=== PATIENT | male | born 1995 | race Caucasian/White ===

== ENCOUNTER 2018-03-07 13:35 | Emergency (ER) | payer BC ==
--- OUTSIDE RECORDS SUMMARY | 2018-03-07 13:39 | XMS REPORT | Clinical Summary ---
:1995 Author Organization [facility] Address [address] [place] [id number] Care Team Providers Name Role Phone Lambert London MD Primary Care Provider Allergies Active Allergy Reactions Severity Noted Date Comments Ciprofloxacin 02/29/2016 Current Medications Prescription Sig. Disp. Refills Start Date End Date Status ergocalciferol Take 50,000 Units Active (ERGOCALCIFEROL) 50,000 by mouth once a unit capsule week. magnesium chloride 64 mg Take 64 mg by Active tablet,delayed release mouth 3 (three) (DR/EC) DR tablet times a day. 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 Nutritional disorder 11/19/2012 Crohn's disease 04/24/2011 Duodenitis 04/23/2011 Gastric catarrh 04/23/2011 Ileitis 04/23/2011 Abdominal pain 04/22/2011 Diarrhea 04/22/2011 Social History Tobacco Use Types Packs/Day Years Used Date Never Smoker Alcohol Use Drinks/Week oz/Week Comments No Sex Assigned at Date Recorded Not on file Last Filed Vital Signs Not on file Plan of Treatment Health Maintenance Due Date Last Done Comments INFLUENZA VACCINE 04/23/2018 Results Not on fileafter 03/06/2017 Insurance Payer Benefit Plan / Group Subscriber ID Type Phone Address BCBS BCBS CHOICE PPO/FEDERAL EMPL PPO xxxxxxxxxxxxxxx PPO Home: Jacqueline MULLINS O [phone] [id number]
[2018-03-07] MEDS ORDERED: ONDANSETRON 4 MG/2 ML VIAL ONE (18:56)
[2018-03-07] MEDS ORDERED: NA CHLORIDE 0.9% 1,000 ML ONE (18:56)
[2018-03-07 19:00] LABS: Absolute Lymphocytes (CBC) 1.8 K/uL (0.7-4.9); Absolute Monocytes 0.8 K/uL (0.1-1.3); Absolute Neutrophil 8.6 K/uL (1.8-8.0); Basophils % 0.5 % (0-1.3); Eosinophils % 1.2 % (0-4.4); Hematocrit 47.9 % (39.6-49.0); Lymphocytes % 16.1 % (15.3-44.8); MCH 28.8 pg (27.0-35.0); MCV 85.8 fL (80-100); MPV 8.8 fL (7.6-11.3); Monocytes % 7.2 % (3.3-12.3); RBC Red Blood Cell Count 5.58 M/uL (4.33-5.43)
[2018-03-07 19:10] LABS: Bicarbonate 27 mEq/L (21-31); Glucose Level 101 mg/dL (65-120); Lipase 27 U/L (22-51); Potassium 3.7 mEq/L (3.6-5.0); Sodium Level 137 mEq/L (135-145)
[2018-03-07 19:16] LABS: ALT/SGPT 15 IU/L (10-60); AST/SGOT 21 IU/L (10-42); Albumin 4.7 g/dL (3.2-5.5); Alkaline Phosphatase 72 IU/L (42-121); BUN Blood Urea Nitrogen 15 mg/dL (6-20); Bilirubin Direct < 0.1 mg/dL (0-0.2); Bilirubin Total 0.5 mg/dL (0.3-1.2); Protein, Total 8.8 g/dL (6.0-8.3)
--- NOTE | 2018-03-07 20:02 | RAD REPORT ---
EXAM DESCRIPTION: CTAbdomen Pelvis W Contrast - 03/07/2018 7:39 pm CLINICAL HISTORY: Abdominal pain. ABD PAIN COMPARISON: CT ABD PELVIS W CONTRAST dated 04/19/2011; CT ABD PELVIS W CONTRAST dated 07/14/2011; Sma ll Bowel Series dated 03/30/2016 TECHNIQUE: Biphasic CT imaging of the abdomen and pelvis was performed with 100 ml non-ionic IV cont rast. All CT scans are performed using dose optimization technique as appropriate and may include automated exposure control or mA/KV adjustment according to patient size. FINDINGS: The lung bases are clear. The liver, spleen, pancreas, adrenal glands and kidneys are within normal limits. No bowel obstruction, free air, free fluid or abscess. Significant fecal retention is seen. Marked in flammatory wall thickening of the terminal ileum is seen. Several surrounding reactive lymph nodes ar e present. The appendix is not identified as a discrete structure, however, no secondary findings of appendicitis are identified. No suspicious bony findings. IMPRESSION: Moderate to marked inflammatory changes involving the terminal ileum compatible with his tory of Crohn's disease. Significant constipation.
[2018-03-07 21:49] LABS: Urine Blood NEGATIVE (NEG); Urine Glucose NEGATIVE (NEG); Urine Protein NEGATIVE (NEG); Urine Specific Gravity 1.015 (1.005-1.030); Urine pH 8.5 (5.0-7.0)
--- NOTE | 2018-03-07 22:13 | ER ---
Nurse's Notes [facility] Name: Garry Franz Age: 22 yrs Sex: Male : 1995 Arrival Date: 03/07/2018 Time: 13:44 Bed 17 Private MD: Diagnosis: Crohn's disease [regional enteritis];Constipation Presentation: 03/07 14:08 Presenting complaint: Patient states: nausea/vomiting that began 5 days ago. pt states aa5 "I feel dehydrated". pt states "I have chron's so I always have diarrhea". Transition of care: patient was not received from another setting of care. Onset of symptoms was March 02, 2018. Risk Assessment: Do you want to hurt yourself or someone else? Patient reports no desire to harm self or others. Initial Sepsis Screen: Does the patient meet any 2 criteria? No. Patient's initial sepsis screen is negative. Does the patient have a suspected source of infection? No. Patient's initial sepsis screen is negative. Care prior to arrival: None. 14:08 Method Of Arrival: Ambulatory aa5 14:08 Acuity: KYA 3 aa5 Triage Assessment: 18:50 General: Appears in no apparent distress. comfortable, Behavior is calm, cooperative. em Pain: Complains of pain in "everywhere". GI: Reports "hx of chron's". Historical: - Allergies: 14:09 No Known Allergies; aa5 - PMHx: 14:09 chron's; aa5 - PSHx: 14:09 Hernia repair; aa5 - Immunization history:: Adult Immunizations up to date. - Social history:: Smoking status: Patient/guardian denies using tobacco. - Ebola Screening: : No symptoms or risks identified at this time. Screenin:50 Abuse screen: Denies threats or abuse. Nutritional screening: reports feeling em "malnourished" . Tuberculosis screening: No symptoms or risk factors identified. Fall Risk None identified. Assessment: 18:50 General: Appears in no apparent distress. comfortable, Behavior is calm, cooperative. em Pain: Denies pain. Neuro: Level of Consciousness is awake, alert, obeys commands, Oriented to person, place, time, situation. Cardiovascular: Capillary refill < 3 seconds Patient's skin is warm and dry. Cardiovascular: Reports palpitations, Denies chest pain, diaphoresis, nausea, vomiting. Respiratory: Airway is patent Respiratory effort is even, unlabored, Respiratory pattern is regular, symmetrical. GI: Abdomen is flat, Reports intolerance of fluids, intolerance of food. : Urine is clear. EENT: Oral mucosa is moist. Throat is clear is pink. Derm: Skin is intact, Skin is pink, warm \\T\\ dry. Musculoskeletal: Range of motion: intact in all extremities. 19:00 Reassessment: Patient appears in no apparent distress at this time. I agree with the ss above assessment by Blaine Lou LVN. 19:32 General: reviewed previous assessment and there have been no changes. IV fluids tl2 infusing. Pt is out to CT. 20:29 Reassessment: Patient appears in no apparent distress at this time. Patient and/or tl2 family updated on plan of care and expected duration. Pain level reassessed. Patient is alert, oriented x 3, equal unlabored respirations, skin warm/dry/pink. Patient states feeling better. 21:45 Reassessment: Patient appears in no apparent distress at this time. Patient and/or tl2 family updated on plan of care and expected duration. Pain level reassessed. Patient is alert, oriented x 3, equal unlabored respirations, skin warm/dry/pink. Awaiting TUBE CUTTER OPERATOR to come speak with pt. 22:33 Reassessment: Patient appears in no apparent distress at this time. Patient and/or tl2 family updated on plan of care and expected duration. Pain level reassessed. Patient is alert, oriented x 3, equal unlabored respirations, skin warm/dry/pink. Pt verbalized understanding of discharge instructions, need for follow up and prescription usage. Vital Signs: 14:09 BP 147 / 95; Pulse 98; Resp 18 S; Temp 99.2(TE); Pulse Ox 98% on R/A; Weight 56.7 kg aa5 (R); Height 5 ft. 9 in. (175.26 cm) (R); Pain 0/10; 19:26 BP 141 / 87; Pulse 93; Resp 18; Pulse Ox 97% on R/A; mt 20:29 BP 136 / 80; Pulse 88; Resp 18; Pulse Ox 97% on R/A; tl2 21:45 BP 130 / 93; Pulse 82; Resp 18; Pulse Ox 98% on R/A; tl2 14:09 Body Mass Index 18.46 (56.70 kg, 175.26 cm) aa5 ED Course: 13:44 Patient arrived in ED. sb2 14:09 Triage completed. aa5 14:09 Arm band placed on. aa5 18:26 Lyle Reilly NP is PHCP. pm1 18:26 Axel Kay MD is Attending Physician. pm1 18:50 Blaine Lou LVN is Primary Nurse. em 18:50 Patient has correct armband on for positive identification. Bed in low position. Call em light in reach. Adult w/ patient. 19:15 Inserted 20 g in R forearm placed during previous shift IV is patent, is intact, with tl2 fluids infusing freely. 19:[address] via wheelchair. mw3 19:39 CT Abd/Pelvis - W/Contrast: IV contrast only In Process Unspecified. EDMS 22:12 Carmen Olson MD is Referral Physician. pm1 22:33 No provider procedures requiring assistance completed. tl2 22:35 IV discontinued, intact, bleeding controlled, No redness/swelling at site. Pressure tl2 dressing applied. Administered Medications: 19:02 Drug: Zofran 4 mg Route: IVP; Site: right forearm; ss 20:00 Follow up: Response: No adverse reaction; Nausea is decreased tl2 19:03 Drug: NS 0.9% 1000 ml Route: IV; Rate: 1000 ml; Site: right forearm; em 22:36 Follow up: IV Status: Completed infusion; IV Intake: 1000ml tl2 Intake: 22:36 IV: 1000ml; Total: 1000ml. tl2 Outcome: 22:12 Discharge ordered by . pm1 22:35 Discharged to home ambulatory, with family. tl2 22:35 Condition: stable 22:35 Discharge instructions given to patient, Instructed on discharge instructions, follow up and referral plans. medication usage, Demonstrated understanding of instructions, follow-up care, medications, Prescriptions given X 1. 22:36 Patient left the ED. tl2 Signatures: Dispatcher [employer] EDMA Blaine Lou LVN GUN PERFORATOR em Pratibha Cast RN RN aa5 Mayi Plascencia RN RN Llye Reilly NP TUBE CUTTER OPERATOR pm1 Rosalinda Lemus RN RN tl2 Claribel Marino mt, Sheri sb2 Alba Mondragon mw3
--- NOTE | 2018-03-07 22:13 | EDPHYS ---
Physician Documentation [facility] Name: Garry Franz Age: 22 yrs Sex: Male : 1995 Arrival Date: 03/07/2018 Time: 13:44 Bed 17 Private MD: ED Physician Axel Kay HPI: 03/07 19:00 This 22 yrs old Male presents to ER via Ambulatory with complaints of pm1 Nausea/Vomiting, Dehydration. 19:00 The patient presents to the emergency department with nausea, diarrhea, abdominal pain, pm1 of the left upper quadrant, described as vague,\E\. 19:00 Onset: The symptoms/episode began/occurred 5 day(s) ago. Possible causes: Crohn's pm1 disease. Patient with diagnosis of disease since the age of 14. Patient no longer taking medications for disease and is treating holistically. The symptoms are aggravated by nothing. The symptoms are alleviated by nothing. Associated signs and symptoms: Pertinent positives: abdominal pain, diarrhea, Pertinent negatives: constipation, dysuria, fever. The patient has not recently seen a physician, used to see [facility] for Crohns' disease. Historical: - Allergies: 14:09 No Known Allergies; aa5 - PMHx: 14:09 chron's; aa5 - PSHx: 14:09 Hernia repair; aa5 - Immunization history:: Adult Immunizations up to date. - Social history:: Smoking status: Patient/guardian denies using tobacco. - Ebola Screening: : No symptoms or risks identified at this time. ROS: 19:00 Constitutional: Negative for fever, chills, and weight loss, Eyes: Negative for injury, pm1 pain, redness, and discharge, ENT: Negative for injury, pain, and discharge, Neck: Negative for injury, pain, and swelling, Cardiovascular: Negative for chest pain, palpitations, and edema, Respiratory: Negative for shortness of breath, cough, wheezing, and pleuritic chest pain. 19:00 Back: Negative for injury and pain, : Negative for injury, bleeding, discharge, and swelling, MS/Extremity: Negative for injury and deformity, Skin: Negative for injury, rash, and discoloration, Neuro: Negative for headache, weakness, numbness, tingling, and seizure. 19:00 Abdomen/GI: Positive for abdominal pain, nausea and vomiting, diarrhea. Exam: 19:00 Constitutional: This is a well developed, well nourished patient who is awake, alert, pm1 and in no acute distress. Head/Face: Normocephalic, atraumatic. Eyes: Pupils equal round and reactive to light, extra-ocular motions intact. Lids and lashes normal. Conjunctiva and sclera are non-icteric and not injected. Cornea within normal limits. Periorbital areas with no swelling, redness, or edema. ENT: Nares patent. No nasal discharge, no septal abnormalities noted. Tympanic membranes are normal and external auditory canals are clear. Oropharynx with no redness, swelling, or masses, exudates, or evidence of obstruction, uvula midline. Mucous membranes moist. Neck: Trachea midline, no thyromegaly or masses palpated, and no cervical lymphadenopathy. Supple, full range of motion without nuchal rigidity, or vertebral point tenderness. No Meningismus. Chest/axilla: Normal chest wall appearance and motion. Nontender with no deformity. No lesions are appreciated. Cardiovascular: Regular rate and rhythm with a normal S1 and S2. No gallops, murmurs, or rubs. Normal PMI, no JVD. No pulse deficits. Respiratory: Lungs have equal breath sounds bilaterally, clear to auscultation and percussion. No rales, rhonchi or wheezes noted. No increased work of breathing, no retractions or nasal flaring. Abdomen/GI: Soft, non-tender, with normal bowel sounds. No distension or tympany. No guarding or rebound. No evidence of tenderness throughout. Back: No spinal tenderness. No costovertebral tenderness. Full range of motion. Skin: Warm, dry with normal turgor. Normal color with no rashes, no lesions, and no evidence of cellulitis. MS/ Extremity: Pulses equal, no cyanosis. Neurovascular intact. Full, normal range of motion. 19:00 Neuro: Orientation: is normal, Motor: is normal, moves all fours, Gait: is steady, at a normal pace, without difficulty. Vital Signs: 14:09 BP 147 / 95; Pulse 98; Resp 18 S; Temp 99.2(TE); Pulse Ox 98% on R/A; Weight 56.7 kg aa5 (R); Height 5 ft. 9 in. (175.26 cm) (R); Pain 0/10; 19:26 BP 141 / 87; Pulse 93; Resp 18; Pulse Ox 97% on R/A; mt 20:29 BP 136 / 80; Pulse 88; Resp 18; Pulse Ox 97% on R/A; tl2 21:45 BP 130 / 93; Pulse 82; Resp 18; Pulse Ox 98% on R/A; tl2 14:09 Body Mass Index 18.46 (56.70 kg, 175.26 cm) aa5 MDM: 18:33 Patient medically screened. pm1 22:11 Data reviewed: vital signs. Data interpreted: Pulse oximetry: on room air is 98 %. pm1 Interpretation: normal. Counseling: I had a detailed discussion with the patient and/or guardian regarding: the historical points, exam findings, and any diagnostic results supporting the discharge/admit diagnosis, lab results, radiology results, the need for outpatient follow up, to return to the emergency department if symptoms worsen or persist or if there are any questions or concerns that arise at home. 03/07 18:34 Order name: Basic Metabolic Panel pm1 03/07 18:34 Order name: CBC with Diff; Complete Time: 20:20 pm1 03/07 18:34 Order name: Creatinine for Radiology; Complete Time: 20:20 pm1 03/07 18:34 Order name: Hepatic Function pm1 03/07 18:34 Order name: Lipase pm1 03/07 18:34 Order name: Basic Metabolic Panel; Complete Time: 20:20 EDMS 03/07 18:34 Order name: Liver (Hepatic) Function; Complete Time: 20:20 EDMS 03/07 18:34 Order name: Lipase; Complete Time: 20:20 EDMS 03/07 18:48 Order name: Troponin (emerg Dept Use Only) pm1 03/07 18:48 Order name: CT Abd/Pelvis - W/Contrast: IV contrast only; Complete Time: 20:20 pm1 03/07 18:48 Order name: Flu; Complete Time: 20:20 pm1 03/07 18:48 Order name: Troponin (Emerg Dept Use Only); Complete Time: 20:20 EDMS 03/07 20:06 Order name: Urine Dipstick--Ancillary (enter results) vt 03/07 20:07 Order name: Urine Dipstick-Ancillary; Complete Time: 21:52 EDMS 03/07 18:34 Order name: IV Saline Lock; Complete Time: 19:06 pm1 03/07 18:34 Order name: Labs collected and sent; Complete Time: 19:06 pm1 03/07 18:34 Order name: Urine Dipstick-Ancillary (obtain specimen); Complete Time: 19:06 pm1 03/07 18:48 Order name: EKG; Complete Time: 18:48 pm1 03/07 18:48 Order name: EKG - Nurse/Tech; Complete Time: 19:11 pm1 Administered Medications: 19:02 Drug: Zofran 4 mg Route: IVP; Site: right forearm; 20:00 Follow up: Response: No adverse reaction; Nausea is decreased tl2 19:03 Drug: NS 0.9% 1000 ml Route: IV; Rate: 1000 ml; Site: right forearm; 22:36 Follow up: IV Status: Completed infusion; IV Intake: 1000ml tl2 Disposition: 03/07/18 22:12 Discharged to Home. Impression: Crohn's disease [regional enteritis], Constipation. - Condition is Stable. - Discharge Instructions: Constipation, Adult, Crohn Disease. - Prescriptions for Prednisone 20 mg Oral Tablet - take 1 tablet by ORAL route every 12 hours for 5 days; 10 tablet. - Medication Reconciliation Form, Thank You Letter, Work release form form. - Follow up: Emergency Department; When: As needed; Reason: Worsening of condition. Follow up: Carmen Olson MD; When: 2 - 3 days; Reason: Recheck today's complaints, Continuance of care, Re-evaluation by your physician. - Problem is new. - Symptoms have improved. Addendum: 03/11/2018 07:09 Co-signature as Attending Physician, Axel Kay MD I agree with the assessment and k dr plan of care. Signatures: Dispatcher [employer] [facility] Axel Kay MD MD [facility] Blaine Lou, DIPLOMATIC OFFICER DIPLOMATIC OFFICER em Pratibha Cast, RN RN aa5 Mayi Plascencia RN RN ss Lyle Reilly, JYOIT PRODUCT CONTROLLER pm1 Rosalinda Lemus RN RN tl2 Corrections: (The following items were deleted from the chart) 03/07 22:36 22:12 03/07/2018 22:12 Discharged to Home. Impression: Crohn's disease [regional tl2 enteritis]; Constipation. Condition is Stable. Forms are Medication Reconciliation Form, Thank You Letter, Antibiotic Education, Prescription Opioid Use. Follow up: Emergency Department; When: As needed; Reason: Worsening of condition. Follow up: Carmen Olson; When: 2 - 3 days; Reason: Recheck today's complaints, Continuance of care, Re-evaluation by your physician. Problem is new. Symptoms have improved. pm1
--- NOTE | 2018-03-08 13:44 | EKG ---
Test Date: 2018-03-07 Test Time: 19:10:40 Locker Room Supervisor: JADEN MEASUREMENT RESULTS: Intervals: Rate: 72 ME: 120 QRSD: 88 QT: 360 QTc: 394 [place]: P: 75 ME: 120 QRS: 91 T: 80 INTERPRETIVE STATEMENTS: Normal sinus rhythm with sinus arrhythmia Right atrial enlargement Rightward axis Borderline ECG Compared to ECG 07/13/2015 09:48:15 No significant changes Electronically Signed On 03-08-18 13:43:32 CDT by José Lopez
== END 2018-03-07 22:36 | disposition home or self-care (01) ==
LOC: ER 13:35
DX: K50.90 Crohn's disease, unspecified, without complications (principal)
CPT/HCPCS: 36415; 74177; 80048; 80076; 81003; 83690; 84484; 85025; 87804; 93005; 96361; 96374; 99284; J2405; J7030; Q9967

== ENCOUNTER 2021-05-10 13:41 | Emergency (ER) | payer BC, SELFPAY ==
--- NOTE | 2021-05-10 15:32 | RAD REPORT ---
EXAM DESCRIPTION: RAD - Chest Single View - 05/10/2021 2:35 pm CLINICAL HISTORY: CHEST PAIN COMPARISON: June 2015 TECHNIQUE: AP portable chest image was obtained 05/10/2021 2:35 pm . FINDINGS: Lungs are clear. Heart and vasculature are normal. No measurable pleural effusion and no p neumothorax. No acute bony abnormality seen. No acute aortic findings suspected. IMPRESSION: No acute cardiopulmonary process. No significant change from comparison study.
[2021-05-10 16:13] LABS: Absolute Lymphocytes (CBC) 1.6 K/uL (0.7-4.9); Basophils % 0.4 % (0-1.3); Lymphocytes % 21.6 % (15.3-44.8); MPV 8.4 fL (7.6-11.3); RBC Red Blood Cell Count 5.73 M/uL (4.33-5.43)
--- NOTE | 2021-05-10 16:23 | EKG ---
Test Date: 2021-05-10 Test Time: 14:09:15 Experimental Technician: ANNI MEASUREMENT RESULTS: Intervals: Rate: 123 NE: 116 QRSD: 82 QT: 308 QTc: 440 [place]: P: 77 NE: 116 QRS: 96 T: 35 INTERPRETIVE STATEMENTS: Sinus tachycardia Biatrial enlargement Rightward axis Abnormal ECG Compared to ECG 03/07/2018 19:10:40 Sinus rhythm no longer present Sinus arrhythmia no longer present Electronically Signed On 05-10-21 16:22:40 CDT by Zechariah Epstein
[2021-05-10 16:25] LABS: Protime INR 1.05
[2021-05-10 16:32] LABS: ALT/SGPT 20 U/L (12-78); AST/SGOT 11 U/L (15-37); Albumin 4.4 g/dL (3.4-5.0); Alkaline Phosphatase 80 U/L (45-117); BUN Blood Urea Nitrogen 9 mg/dL (7-18); Bicarbonate 29 mmol/L (21-32); Bilirubin Direct 0.1 mg/dL (0-0.2); Bilirubin Total 0.3 mg/dL (0.2-1.0); Glucose Level 103 mg/dL (74-106); Magnesium 2.2 mg/dL (1.8-2.4); NT PRO-BNP 11 pg/mL (<125); Protein, Total 8.4 g/dL (6.4-8.2); Sodium Level 139 mmol/L (136-145); Troponin (Emerg Dept Use Only) < 0.02 ng/mL (0.0-0.045)
--- NOTE | 2021-05-10 18:34 | EDPHYS ---
Physician Documentation [facility] Name: Garry Franz Age: 25 yrs Sex: Male : 1995 Arrival Date: 05/10/2021 Time: 13:45 Bed 20 Private MD: ED Physician Daniel Levin HPI: 05/10 23:51 This 25 yrs old Male presents to ER via Ambulatory with complaints of Chest kb Pain, Arm Pain, Weakness. 23:51 The patient presents with a history of heart racing. Context: The symptoms occur. kb Onset: The symptoms/episode began/occurred last week. Duration: The patient or guardian reports multiple episodes, that are intermittent, with no pattern. Modifying factors: The symptoms are aggravated by nothing. The symptoms are alleviated by nothing. Associated signs and symptoms: The patient has no apparent associated signs or symptoms. Severity of symptoms: At their worst the symptoms were moderate in the emergency department the symptoms are unchanged. The patient has not experienced similar symptoms in the past. The patient has not recently seen a physician. Patient reports palpitations have been going on for a week. States it will feel like his heart is racing or pounding. Describes it as feeling like his heart is weak. States he had an episode last week of tingling to bilateral upper extremities while driving. No history of cardiac disease, no family history of cardiac disease.. Historical: - Allergies: 14:11 No Known Allergies; ss - Home Meds: 14:11 None [Active]; ss - PMHx: 14:11 chron's; ss - PSHx: 14:11 None; ss - Immunization history:: Adult Immunizations up to date, Client reports having NOT received the Covid vaccine. - Social history:: Smoking status: Patient denies any tobacco usage or history of. ROS: 23:51 Constitutional: Negative for fever, chills, and weight loss. kb 23:51 Cardiovascular: Positive for palpitations, Negative for chest pain, edema, orthopnea. 23:51 All other systems are negative. Exam: 23:51 Constitutional: This is a well developed, well nourished patient who is awake, alert, kb and in no acute distress. Head/Face: Normocephalic, atraumatic. ENT: Moist Mucous membranes Cardiovascular: Regular rate and rhythm with a normal S1 and S2. No gallops, murmurs, or rubs. No pulse deficits. Respiratory: Respirations even and unlabored. No increased work of breathing, no retractions or nasal flaring. Abdomen/GI: Soft, non-tender. No distention Skin: Warm, dry with normal turgor. Normal color. MS/ Extremity: Pulses equal, no cyanosis. Neurovascular intact. Full, normal range of motion. Neuro: Awake and alert, GCS 15, oriented to person, place, time, and situation. Moves all extremities. Normal gait. Psych: Awake, alert, with orientation to person, place and time. Behavior, mood, and affect are within normal limits. Vital Signs: 14:03 BP 121 / 85; Pulse 121; Resp 19; Temp 98.6(O); Pulse Ox 98% on R/A; Weight 56.7 kg; ss Height 5 ft. 8 in. (172.72 cm); Pain 7/10; 16:15 BP 135 / 68; Pulse 112; Resp 18; Pulse Ox 100% on R/A; tr6 18:47 BP 127 / 83; Pulse 91; Resp 18; Pulse Ox 100% on R/A; tr6 20:00 BP 132 / 86; Pulse 88; Resp 16; Pulse Ox 100% on R/A; em 14:03 Body Mass Index 19.01 (56.70 kg, 172.72 cm) ss MDM: 15:31 Patient medically screened. kb 23:50 Data reviewed: vital signs, nurses notes. Data reviewed: I have discussed the patient's kb presentation/case with the attending Emergency Department Physician;. Data interpreted: Pulse oximetry: on room air is 100 %. Interpretation: normal. Counseling: I had a detailed discussion with the patient and/or guardian regarding: the historical points, exam findings, and any diagnostic results supporting the discharge/admit diagnosis, lab results, radiology results, the need for outpatient follow up, a analytics developer, to return to the emergency department if symptoms worsen or persist or if there are any questions or concerns that arise at home. 23:53 ED course: Discussed diagnostic results with patient. Patient asked if stress could kb trigger this feeling. States he has been under a lot of stress lately. Patient educated to follow-up with cardiology for possible Holter monitor. Patient educated to return for worsening symptoms or any other concerns.. 05/10 14:13 Order name: Basic Metabolic Panel 05/10 14:13 Order name: CBC with Diff; Complete Time: 16:20 ss 05/10 14:13 Order name: LFT's; Complete Time: 16:33 ss 05/10 14:13 Order name: Magnesium; Complete Time: 16:33 ss 05/10 14:13 Order name: NT PRO-BNP; Complete Time: 16:33 ss 05/10 14:13 Order name: PT-INR; Complete Time: 16:31 ss 05/10 14:13 Order name: Troponin (emerg Dept Use Only); Complete Time: 16:33 ss 05/10 14:13 Order name: XRAY Chest (1 view); Complete Time: 15:36 ss 05/10 14:13 Order name: Basic Metabolic Panel; Complete Time: 16:33 EDMS 05/10 15:31 Order name: D-Dimer 05/10 16:18 Order name: D-Dimer; Complete Time: 16:31 EDMS 05/10 17:16 Order name: TSH 05/10 17:17 Order name: Thyroid Stimulating Hormone; Complete Time: 18:23 EDMS 05/10 14:13 Order name: EKG; Complete Time: 14:13 ss 05/10 14:13 Order name: Cardiac monitoring; Complete Time: 16:14 ss 05/10 14:13 Order name: EKG - Nurse/Tech; Complete Time: 14:13 ss 05/10 14:13 Order name: IV Saline Lock; Complete Time: 16:01 ss 05/10 14:13 Order name: Labs collected and sent; Complete Time: 16:01 ss 05/10 14:13 Order name: O2 Per Protocol; Complete Time: 15:48 ss 05/10 14:13 Order name: O2 Sat Monitoring; Complete Time: 15:48 ss Administered Medications: 18:43 Drug: NS 0.9% 1000 ml Route: IV; Rate: 1000 ml; Site: right forearm; tr6 20:22 Follow up: Response: No adverse reaction; IV Status: Completed infusion; IV Intake: em 1000ml Disposition: 05/11 14:34 Co-signature as Attending Physician, Daniel Levin MD I agree with the assessment and rn plan of care. Attestation: The patient's history, exam findings, diagnostics, and a summary of any interventions or procedures was reviewed in detail with Alba WALLIS. Disposition Summary: 05/10/21 18:33 Discharge Ordered Location: Home kb Condition: Stable kb Diagnosis - Palpitations kb Followup: kb - With: Emergency Department - When: As needed - Reason: Worsening of condition Followup: kb - With: Private Physician - When: 2 - 3 days - Reason: Recheck today's complaints, Continuance of care, Re-evaluation by your physician Discharge Instructions: - Discharge Summary Sheet kb - Palpitations, Orsd-hh-[id number] kb Forms: - Medication Reconciliation Form kb - Thank You Letter kb - Antibiotic Education kb - Prescription Opioid Use kb Signatures: Dispatcher [employer] EDAlba Ann FNP-C FNP-Daniel Green MD MD rn Smirch, Shelby RN RN Carissa Ferrell RN RN tr6 Blaine Lou RN em Corrections: (The following items were deleted from the chart) 05/10 16:18 15:32 D-Dimer ordered. EDRI EDRI
--- NOTE | 2021-05-10 18:34 | ER ---
Nurse's Notes [facility] Name: Garry Franz Age: 25 yrs Sex: Male : 1995 Arrival Date: 05/10/2021 Time: 13:45 Bed 20 Private MD: Diagnosis: Palpitations Presentation: 05/10 14:03 Chief complaint: Patient states: "A couple days ago, I was driving and my arm started ss tingling (Left) and my heart just feels like it's weak." Pt c/o pain to upper back that also began 2 days ago, but is worse. Denies cough, N/V/D. Coronavirus screen: Client denies travel out of the [place] in the last 14 days. Ebola Screen: Patient denies exposure to infectious person. Patient denies travel to an Ebola-affected area in the 21 days before illness onset. Initial Sepsis Screen: Does the patient meet any 2 criteria? No. Patient's initial sepsis screen is negative. Does the patient have a suspected source of infection? No. Patient's initial sepsis screen is negative. Risk Assessment: Do you want to hurt yourself or someone else? Patient reports no desire to harm self or others. Onset of symptoms was May 08, 2021. 14:03 Method Of Arrival: Ambulatory ss 14:03 Acuity: KYA 2 ss Triage Assessment: 18:48 General:. tr6 Historical: - Allergies: 14:11 No Known Allergies; ss - Home Meds: 14:11 None [Active]; ss - PMHx: 14:11 chron's; ss - PSHx: 14:11 None; ss - Immunization history:: Adult Immunizations up to date, Client reports having NOT received the Covid vaccine. - Social history:: Smoking status: Patient denies any tobacco usage or history of. Screenin:15 Abuse screen: Denies threats or abuse. Denies injuries from another. Nutritional tr6 screening: No deficits noted. Tuberculosis screening: No symptoms or risk factors identified. Fall Risk None identified. Assessment: 14:12 Reassessment: Pt refused COVID swab during triage. ss 15:00 Reassessment:. General: Appears in no apparent distress. Behavior is calm, cooperative, tr6 appropriate for age. Pain: Complains of pain in chest Pain does not radiate. Pain began suddenly. Neuro: No deficits noted. Cardiovascular: Reports chest pain. Respiratory: No deficits noted. GI: No deficits noted. : No deficits noted. EENT: No deficits noted. Derm: No deficits noted. Musculoskeletal: No deficits noted. Vital Signs: 14:03 BP 121 / 85; Pulse 121; Resp 19; Temp 98.6(O); Pulse Ox 98% on R/A; Weight 56.7 kg; ss Height 5 ft. 8 in. (172.72 cm); Pain 7/10; 16:15 BP 135 / 68; Pulse 112; Resp 18; Pulse Ox 100% on R/A; tr6 18:47 BP 127 / 83; Pulse 91; Resp 18; Pulse Ox 100% on R/A; tr6 20:00 BP 132 / 86; Pulse 88; Resp 16; Pulse Ox 100% on R/A; em 14:03 Body Mass Index 19.01 (56.70 kg, 172.72 cm) ss ED Course: 13:45 Patient arrived in ED. mr 14:11 Triage completed. ss 14:11 Arm band placed on right wrist. ss 14:35 XRAY Chest (1 view) In Process Unspecified. EDMS 15:30 Carissa Ferrell RN is Primary Nurse. tr6 15:31 Alba Rhoades FNP-C is PHCP. kb 15:31 Daniel Levin MD is Attending Physician. kb 16:01 Inserted saline lock: 18 gauge in right forearm, using aseptic technique. tr6 16:15 Patient has correct armband on for positive identification. child monitor on. Pulse tr6 ox on. NIBP on. Door closed. Noise minimized. Visitors limited. Lights dimmed. Moved to private room. Warm blanket given. 16:15 No provider procedures requiring assistance completed. Patient maintains SpO2 tr6 saturation greater than 95% on room air. 20:22 IV discontinued, intact, bleeding controlled, No redness/swelling at site. Pressure em dressing applied. Administered Medications: 18:43 Drug: NS 0.9% 1000 ml Route: IV; Rate: 1000 ml; Site: right forearm; tr6 20:22 Follow up: Response: No adverse reaction; IV Status: Completed infusion; IV Intake: em 1000ml Intake: 20:22 IV: 1000ml; Total: 1000ml. em Outcome: 18:33 Discharge ordered by MD. bryant 20:21 Discharged to home ambulatory. em 20:21 Condition: improved 20:21 Discharge instructions given to patient, Instructed on discharge instructions, follow up and referral plans. Demonstrated understanding of instructions, follow-up care. 20:36 Patient left the ED. em Signatures: Dispatcher [employer] EDAlba Ann, KARLA-C TELESALES TEAM LEADER-Crystal Parikh Edgar, RN RN Mayi Escamilla RN RN Carissa Ferrell RN RN tr6
[2021-05-10] MEDS ORDERED: NA CHLORIDE 0.9% 1,000 ML ONE (19:05)
[2021-05-10 21:04] VITALS: O2SAT 100
[2021-05-10 21:08] VITALS: BP 132/86
[2021-05-10 21:10] VITALS: TEMP 98.6
== END 2021-05-10 20:36 | disposition home or self-care (01) ==
LOC: ER 13:41
DX: R00.2 Palpitations (principal)
CPT/HCPCS: 36415; 71045; 80048; 80076; 83735; 83880; 84443; 84484; 85025; 85379; 85610; 93005; 96360; 96361; 99285; J7030

== ENCOUNTER 2021-06-10 23:17 | Emergency (ER) | payer SELFPAY ==
[2021-06-10 23:56] LABS: Absolute Lymphocytes (CBC) 1.4 K/uL (0.7-4.9); Basophils % 2.5 % (0-1.3); Lymphocytes % 35.9 % (15.3-44.8); MPV 8.4 fL (7.6-11.3); RBC Red Blood Cell Count 5.57 M/uL (4.33-5.43)
[2021-06-11 00:18] LABS: BUN Blood Urea Nitrogen 15 mg/dL (7-18); Bicarbonate 30 mmol/L (21-32); Glucose Level 87 mg/dL (74-106); Potassium 3.7 mmol/L (3.5-5.1); Sodium Level 138 mmol/L (136-145); Troponin (Emerg Dept Use Only) < 0.02 ng/mL (0.0-0.045)
--- NOTE | 2021-06-11 00:40 | EDPHYS ---
Physician Documentation [facility] Name: Garry Franz Age: 25 yrs Sex: Male : 1995 Arrival Date: 06/10/2021 Time: 23:21 Bed 8 Private MD: ED Physician Sidney Ochoa HPI: 06/11 00:25 This 25 yrs old Male presents to ER via Ambulatory with complaints of Chest kb Pain, High Blood Pressure, Shortness Of Breath. 00:25 The patient presents with a history of heart racing. Context: The symptoms occur at kb rest. Onset: The symptoms/episode began/occurred 4 day(s) ago. Duration: The patient or guardian reports a single episode. Modifying factors: The symptoms are aggravated by nothing. The symptoms are alleviated by nothing. Associated signs and symptoms: Pertinent positives: chest pain, SOB. Severity of symptoms: At their worst the symptoms were mild moderate in the emergency department the symptoms are unchanged. The patient has not experienced similar symptoms in the past. The patient has not recently seen a physician. Pt reports he has felt like his heart was racing for the last 4 days. States he felt some chest heaviness and shortness of breath today from 1900 to 1930. . Historical: - Allergies: 06/10 23:37 No Known Allergies; - Home Meds: 23:37 vitamins [Active]; wg - PMHx: 23:37 chron's; wg - Immunization history:: Adult Immunizations up to date. - Social history:: Smoking status: Patient denies any tobacco usage or history of. ROS: 06/11 00:24 Constitutional: Negative for fever, chills, and weight loss. kb Cardiovascular: Positive for chest pain, palpitations. Respiratory: Positive for shortness of breath. All other systems are negative. Exam: 06/10 23:33 Constitutional: This is a well developed, well nourished patient who is awake, alert, kb and in no acute distress. Head/Face: Normocephalic, atraumatic. ENT: Moist Mucous membranes Cardiovascular: Regular rate and rhythm with a normal S1 and S2. No gallops, murmurs, or rubs. No pulse deficits. Respiratory: Respirations even and unlabored. No increased work of breathing, no retractions or nasal flaring. Skin: Warm, dry with normal turgor. Normal color. MS/ Extremity: Pulses equal, no cyanosis. Neurovascular intact. Full, normal range of motion. Neuro: Awake and alert, GCS 15, oriented to person, place, time, and situation. Moves all extremities. Normal gait. Psych: Awake, alert, with orientation to person, place and time. Behavior, mood, and affect are within normal limits. ECG was reviewed by the Attending Physician. Vital Signs: 23:34 BP 131 / 88; Pulse 98; Resp 18; Temp 98.9; Pulse Ox 100% on R/A; Weight 54.43 kg; wg Height 5 ft. 9 in. (175.26 cm); Pain 0/10; 23:40 BP 128 / 78; Pulse 78; Resp 18; Pulse Ox 99% on R/A; Pain 0/10; wg 06/11 00:45 BP 128 / 78; Pulse 80; Resp 18; Pulse Ox 99% on R/A; Pain 0/10; wg 06/10 23:34 Body Mass Index 17.72 (54.43 kg, 175.26 cm) wg MDM: 06/10 23:24 Patient medically screened. kb 06/11 00:04 Data reviewed: vital signs, nurses notes. Data interpreted: Pulse oximetry: on room air kb is 100 %. Interpretation: normal. 00:24 Counseling: I had a detailed discussion with the patient and/or guardian regarding: the kb historical points, exam findings, and any diagnostic results supporting the discharge/admit diagnosis, lab results, radiology results, the need for outpatient follow up, a family practitioner, to return to the emergency department if symptoms worsen or persist or if there are any questions or concerns that arise at home. 06/10 23:32 Order name: CBC with Diff; Complete Time: 00:21 kb 06/10 23:32 Order name: Basic Metabolic Panel; Complete Time: 00:21 kb 06/10 23:32 Order name: Troponin (emerg Dept Use Only); Complete Time: 00:21 kb 06/10 23:32 Order name: TSH; Complete Time: 00:21 kb 06/10 23:32 Order name: EKG; Complete Time: 23:33 kb 06/10 23:32 Order name: IV Start; Complete Time: 23:44 kb 06/10 23:32 Order name: EKG - Nurse/Tech; Complete Time: 23:44 kb EC/18 23:33 Rate is 87 beats/min. Rhythm is regular. QRS Clarence is Normal. MO interval is normal at kb 116 msec. QRS interval is normal at 94 msec. QT interval is normal at 356 msec. Administered Medications: No medications were administered Disposition: 06/11 04:10 Co-signature as Attending Physician, Sidney Ochoa MD. [email or web address] Disposition Summary: 06/11/21 00:39 Discharge Ordered Location: Home kb Condition: Stable kb Diagnosis - Palpitations kb Followup: kb - With: Private Physician - When: 2 - 3 days - Reason: Recheck today's complaints, Continuance of care, Re-evaluation by your physician Followup: kb - With: Emergency Department - When: As needed - Reason: Worsening of condition Discharge Instructions: - Discharge Summary Sheet kb - Palpitations, Trth-mr-Laze kb Forms: - Medication Reconciliation Form kb - Thank You Letter kb - Antibiotic Education kb - Prescription Opioid Use kb Signatures: Dispatcher [employer] EDMS Alba Rhoades, KARLA-C KARLA-Sidney Emerson MD MD 7 Gianni Gardiner, ROSA MARIA wg Corrections: (The following items were deleted from the chart) 00:06/10 23:33 Chest Single View+RAD.RAD.BRZ ordered. EDCO CHANTELLECO
--- NOTE | 2021-06-11 00:40 | ER ---
Nurse's Notes [facility] Name: Garry Franz Age: 25 yrs Sex: Male : 1995 Arrival Date: 06/10/2021 Time: 23:21 Bed 8 Private MD: Diagnosis: Palpitations Presentation: 06/10 23:34 Chief complaint: Patient states: Pt states he hasn't been feeling well for the past 4 wg days. 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 Coronavirus screen: Vaccine status: Patient reports being unvaccinated. At this time, the client does not indicate any symptoms associated with coronavirus-19. Ebola Screen: Patient negative for fever greater than or equal to 101.5 degrees Fahrenheit, and additional compatible Ebola Virus Disease symptoms Patient denies exposure to infectious person. Patient denies travel to an Ebola-affected area in the 21 days before illness onset. No symptoms or risks identified at this time. Initial Sepsis Screen: Does the patient meet any 2 criteria? No. Patient's initial sepsis screen is negative. Does the patient have a suspected source of infection? No. Patient's initial sepsis screen is negative. Risk Assessment: Do you want to hurt yourself or someone else? Patient reports no desire to harm self or others. Onset of symptoms was June 10, 2021 at 19:00. Care prior to arrival: None. 23:34 Method Of Arrival: Ambulatory 23:34 Acuity: KYA 3 wg Triage Assessment: 23:37 General: Appears in no apparent distress. comfortable, slender, well developed, wg Behavior is calm, cooperative, appropriate for age. Pain: Denies pain. EENT: No deficits noted. Neuro: No deficits noted. Cardiovascular: Reports chest pain, shortness of breath, "heavy chest" resolved around 1930. Respiratory: No deficits noted. Reports No SOB at this time. Breath sounds are clear bilaterally. GI: Hx Crohns. No current symptoms or complaints. : No deficits noted. Historical: - Allergies: 23:37 No Known Allergies; wg - Home Meds: 23:37 vitamins [Active]; wg - PMHx: 23:37 chron's; wg - Immunization history:: Adult Immunizations up to date. - Social history:: Smoking status: Patient denies any tobacco usage or history of. Screenin/19 00:55 Abuse screen: Denies threats or abuse. Denies injuries from another. Nutritional wg screening: No deficits noted. Tuberculosis screening: No symptoms or risk factors identified. Fall Risk Vital Signs: 06/10 23:34 BP 131 / 88; Pulse 98; Resp 18; Temp 98.9; Pulse Ox 100% on R/A; Weight 54.43 kg; wg Height 5 ft. 9 in. (175.26 cm); Pain 0/10; 23:40 BP 128 / 78; Pulse 78; Resp 18; Pulse Ox 99% on R/A; Pain 0/10; wg 06/11 00:45 BP 128 / 78; Pulse 80; Resp 18; Pulse Ox 99% on R/A; Pain 0/10; wg 06/10 23:34 Body Mass Index 17.72 (54.43 kg, 175.26 cm) wg ED Course: 06/10 23:21 Patient arrived in ED. jaHaritha 23:24 Alba Rhoades [facility]C [facility] kb 23:24 Sidney Ochoa MD is Attending Physician. kb 23:33 Gianni Gardiner, ROSA MARIA is Primary Nurse. wg 23:37 Triage completed. wg 23:37 Arm band placed on right wrist. EKG completed in triage. Results shown to MD. wg 23:41 Patient has correct armband on for positive identification. youth nutritional monitor on. Pulse wg ox on. NIBP on. 23:41 No provider procedures requiring assistance completed. Inserted saline lock: 20 gauge wg in left forearm, using aseptic technique. Patient maintains SpO2 saturation greater than 95% on room air. 06/11 00:55 IV discontinued, intact, bleeding controlled, No redness/swelling at site. Pressure wg dressing applied. Administered Medications: No medications were administered Outcome: 00:39 Discharge ordered by . kb 00:55 Discharged to home ambulatory. wg 00:55 Condition: stable 00:55 Discharge instructions given to patient, Instructed on discharge instructions, follow up and referral plans. Demonstrated understanding of instructions, follow-up care, medications. 00:56 Patient left the ED. wg Signatures: Alba Rhoades FNP-C FNP-Gianni Flowers, RN Rocío Russell ja2 Corrections: (The following items were deleted from the chart) 06/10 23:43 23:34 Chief complaint: Patient states: Pt states he hasn't been feeling well for the wg past 4 days. 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 wg
[2021-06-11 01:17] VITALS: TEMP 98.9
[2021-06-11 01:18] VITALS: BP 128/78; O2SAT 99
== END 2021-06-11 00:56 | disposition home or self-care (01) ==
LOC: ER 23:17
DX: R00.2 Palpitations (principal)
CPT/HCPCS: 36415; 80048; 84443; 84484; 85025; 93005; 99284

== ENCOUNTER 2024-06-23 15:13 | Emergency (ER) | payer SELFPAY ==
--- NOTE | 2024-06-23 17:01 | RAD REPORT ---
EXAMINATION: Abdomen Exam Limited CLINICAL HISTORY: [facility] MAIN Y ABD PAIN Bed Name: ZOHREH COMPARISON: None. TECHNIQUE: Limited upper abdominal grayscale and color flow sonographic images. FINDINGS: Gallbladder: Mild wall thickening near the fundus. No calculi or sludge. No pericholecystic fluid. Re ported negative sonographic Redmond's sign. Bile ducts: No intrahepatic or extrahepatic biliary dilatation. Common bile duct measures 2 mm. Liver: Visualized portions of the liver demonstrate normal echogenicity with no suspicious findings. Fluid: No ascites. IMPRESSION: Mild wall thickening near the fundus, nonspecific. No other sonographic abnormalities in the right up per quadrant.
[2024-06-23] MEDS ORDERED: NA CHLORIDE 0.9% 1,000 ML ONE ×3 (17:10→21:13)
[2024-06-23 17:33] LABS: Absolute Lymphocytes (CBC) 0.4 K/uL (0.7-4.9); Absolute Monocytes 1.2 K/uL (0.1-1.3); Absolute Neutrophil 19.7 K/uL (1.8-8.0); Basophils % 0.1 % (0-1.3); Hematocrit 54.7 % (39.6-49.0); Hemoglobin 18.3 g/dL (13.6-17.9); Lymphocytes % 1.8 % (15.3-44.8); MCH 30.3 pg (27.0-35.0); MCHC 33.5 g/dL (32.0-36.0); MCV 90.5 fL (80-100); MPV 8.3 fL (7.6-11.3); Monocytes % 5.5 % (3.3-12.3); Neutrophils % 92.6 % (41.7-73.7); Platelets 254 thou/uL (152-406); RBC Red Blood Cell Count 6.04 M/uL (4.33-5.43); Red Cell Distribution Width 14.3 % (12.1-15.2)
[2024-06-23 17:51] LABS: ALT/SGPT 22 U/L (16-61); Albumin 4.6 g/dL (3.4-5.0); Albumin/Globulin Ratio 1.1 (1.1-1.8); Alkaline Phosphatase 84 U/L (45-117); Anion Gap 9.7 mEq/L (5.0-15.0); BUN Blood Urea Nitrogen 16 mg/dL (7-18); Bicarbonate 26 mEq/L (21-32); Bilirubin Total 0.7 mg/dL (0.2-1.0); Globulin 4.3 g/dL (2.3-3.5); Glomerular Filtration Rate 119 ml/min (=/>90); Glucose Level 131 mg/dL (74-106); Lipase 40 U/L (13-75); Potassium 3.7 mEq/L (3.5-5.1); Protein, Total 8.9 g/dL (6.4-8.2); Sodium Level 134 mEq/L (136-145)
[2024-06-23 18:14] LABS: AST/SGOT < 10 U/L (15-37)
[2024-06-23] MEDS ORDERED: ONDANSETRON 4 MG/2 ML VIAL ONE (18:40)
[2024-06-23] MEDS ORDERED: MORPHINE 4 MG/ML SYR ONE (18:40)
--- NOTE | 2024-06-23 18:50 | RAD REPORT ---
EXAMINATION: Abdomen Pelvis Wo Contrast CLINICAL INDICATION: Male, 28 years old. ABD PAIN TECHNIQUE: CT abdomen and pelvis was performed, without IV contrast, as per department protocol. Axia l, sagittal and coronal reconstructions were obtained. One or more of the following dose reduction techniques were used: Automated exposure control, adjustment of the mA and kV according to the patien t size, and iterative reconstruction. Unless otherwise specified, incidental findings do not require dedicated imaging follow-up. COMPARISON: 03/07/2018 FINDINGS: The lack of intravenous contrast limits the sensitivity of this exam for evaluation of solid visceral organs, vascular structures, and retroperitoneum. LOWER CHEST: The visualized lung bases are clear. LIVER: Normal in size and contour. No focal lesion. BILIARY SYSTEM: No suspicious abnormalities. SPLEEN: Normal size. No focal lesion. PANCREAS: No mass, ductal dilation, or pippa-pancreatic fluid. ADRENALS: Normal; no mass. KIDNEYS AND URETERS: Normal size and contour. No hydronephrosis. URINARY BLADDER: Normal contour. GASTROINTESTINAL TRACT: Markedly distended small bowel loops throughout the central abdomen with air- fluid levels. Focal transition points of at least 2 loops are seen where bowel is tethered to a stellate soft tissue density in the central lower abdomen, where abrupt transition of bowel caliber i s noted. See series 202 image 31 and series 201 image 63 among others. Distal collapsed small bowel loops in the right lower quadrant. Small volume of free fluid and adjacent fat stranding just caudal to the level of this region of tethering. No evidence of free air or discrete fluid collection. APPENDIX: Normal appendix. LYMPH NODES: No lymphadenopathy. MUSCULOSKELETAL: No acute or suspicious osseous abnormality. ADDITIONAL FINDINGS: None. IMPRESSION: Pattern of high-grade small bowel obstruction with tethering and abrupt caliber transition of multipl e small bowel loops to a stellate region of soft tissue density in the central lower abdomen, suggesting an inflammatory/fibrotic mass, in the setting of known Crohn's disease. No evidence of dis crete fluid collections, free air, or fistula formation within limits of noncontrast evaluation. THIS REPORT CONTAINS FINDINGS THAT MAY BE CRITICAL TO PATIENT CARE. The findings were verbally commun icated via telephone to Derrek Page on 06/23/2024 6:47 PM.
[2024-06-23 18:51] LABS: Blood Morphology Comment NOT SEEN (NOT SEEN); Platelet Estimate ADEQ; White Blood Cell Scan OK (OK)
[2024-06-23 19:09] LABS: Specific Gravity > 1.030 (1.005-1.030); Sqamous Epithelial None Seen /HPF (None Seen); Urine Bacteria <20 /HPF (<20); Urine Bilirubin NEGATIVE (Negative); Urine Blood Negative (Negative); Urine Clarity Extremely Turbid (Clear); Urine Color Light-Orange (Yellow); Urine Culture Reflex Order NOT NEEDED; Urine Glucose NEGATIVE (Negative); Urine Ketones 1+ (Negative); Urine Microscopic Reflex YN ORDER UMIC; Urine Mucus 4+ /HPF (None Seen); Urine Nitrite NEGATIVE (Negative); Urine Protein 2+ (Negative); Urine RBC <5 /HPF (None Seen); Urine Urobilinogen Normal (Normal); Urine WBC <5 /HPF (<5)
[2024-06-23] MEDS ORDERED: LIDOCAINE VISCOUS 2% 10ML ORAL SOLN ONE (19:38)
[2024-06-23] MEDS ORDERED: METHYLPREDNISOLONE 125 MG INJ ONE (19:38)
--- NOTE | 2024-06-23 19:51 | ER ---
Nurse's Notes [facility] Name: Garry Franz Age: 28 yrs Sex: Male : 1995 Arrival Date: 06/23/2024 Time: 15:13 Bed 19 Private MD: Diagnosis: Other intestinal obstruction;Intra-abdominal and pelvic swelling, mass and lump, unspecified site Presentation: 06/23 15:20 Chief complaint: Patient states: last night started to have nausea and vomiting, cramps tm6 in stomach, sweating and shaking. Feels bloated and like I'm going to pass out, feels lightheaded. Coronavirus screen: Client denies travel out of the [place] in the last 14 days. Ebola Screen: Patient negative for fever greater than or equal to 101.5 degrees Fahrenheit, and additional compatible Ebola Virus Disease symptoms Patient denies exposure to infectious person. Patient denies travel to an Ebola-affected area in the 21 days before illness onset. No symptoms or risks identified at this time. Initial Sepsis Screen: Does the patient meet any 2 criteria? HR > 90 bpm. Does the patient have a suspected source of infection? No. Patient's initial sepsis screen is negative. Risk Assessment: Do you want to hurt yourself or someone else? Patient reports no desire to harm self or others. Onset of symptoms was June 22, 2024. 15:20 Method Of Arrival: Ambulatory tm6 15:20 Acuity: KYA 3 tm6 Triage Assessment: 15:22 General: Appears uncomfortable, ill, Behavior is cooperative. Pain: Complains of pain tm6 in abdomen Pain currently is 10 out of 10 on a pain scale. Quality of pain is described as crampy, Pain began 1 day ago. EENT: No signs and/or symptoms were reported regarding the EENT system. Neuro: Level of Consciousness is awake, alert, obeys commands, Oriented to person, place, time, situation. Cardiovascular: Patient's skin is warm and dry. Respiratory: Airway is patent Respiratory effort is even, unlabored, Respiratory pattern is regular, symmetrical. GI: Abdomen is flat, non-distended, Reports lower abdominal pain, upper abdominal pain, cramping, nausea, vomiting, since yesterday. : No signs and/or symptoms were reported regarding the genitourinary system. Derm: No signs and/or symptoms reported regarding the dermatologic system. Musculoskeletal: No signs and/or symptoms reported regarding the musculoskeletal system. Historical: - Allergies: 15:22 No Known Allergies; tm6 - PMHx: 15:22 chron's; tm6 - PSHx: 15:22 None; tm6 - Immunization history:: Client reports having NOT received the Covid vaccine. - Infectious Disease History:: Denies. - Social history:: Smoking status: Patient denies any tobacco usage or history of. Patient/guardian denies using alcohol. Screenin:48 [facility] ED Fall Risk Assessment (Adult) History of falling in the last 3 months, mb9 including since admission No falls in past 3 months (0 pts) Confusion or Disorientation No (0 pts) Intoxicated or Sedated No (0 pts) Impaired Gait No (0 pts) Mobility Assist Device Used No (0 pt) Altered Elimination No (0 pt) Score/Fall Risk Level 0 - 2 = Low Risk Oriented to surroundings, Maintained a safe environment, Educated pt \\T\\ family on fall prevention, incl call for assistance when getting out of bed. Abuse screen: Denies threats or abuse. Nutritional screening: No deficits noted. Tuberculosis screening: No symptoms or risk factors identified. Assessment: 18:46 Reassessment: Pt states, "I want to wait on the antibiotics until the results of the mb9 CT." ERP notified. 19:10 General: Appears in no apparent distress. Behavior is calm, cooperative, appropriate rg5 for age. 19:10 Pain: Complains of pain in abdomen Pain currently is 4 out of 10 on a pain scale. rg5 Quality of pain is described as aching. Neuro: Level of Consciousness is awake, alert, obeys commands, Oriented to person, place, time. Cardiovascular: Patient's skin is warm and dry. Respiratory: Airway is patent Trachea midline Respiratory effort is even, unlabored, Respiratory pattern is regular, symmetrical. GI: Abdomen is flat, Abd is soft. : No signs and/or symptoms were reported regarding the genitourinary system. EENT: No deficits noted. Derm: Skin is intact, Skin is dry, Skin is normal, Skin temperature is warm. Musculoskeletal: Circulation, motion, and sensation intact. Range of motion: intact in all extremities. 20:25 Reassessment: Patient and/or family updated on plan of care and expected duration. Pain rg5 level reassessed. Patient is alert, oriented x 3, equal unlabored respirations, skin warm/dry/pink. 21:30 Reassessment: Patient and/or family updated on plan of care and expected duration. Pain rg5 level reassessed. Patient is alert, oriented x 3, equal unlabored respirations, skin warm/dry/pink. 22:00 Reassessment: Patient and/or family updated on plan of care and expected duration. Pain rg5 level reassessed. Patient is alert, oriented x 3, equal unlabored respirations, skin warm/dry/pink. Patient states feeling better. Patient states symptoms have improved. 22:30 Reassessment: Patient and/or family updated on plan of care and expected duration. Pain rg5 level reassessed. Patient is alert, oriented x 3, equal unlabored respirations, skin warm/dry/pink. Patient states feeling better. Patient states symptoms have improved. 23:49 Reassessment: Patient and/or family updated on plan of care and expected duration. Pain rg5 level reassessed. Patient is alert, oriented x 3, equal unlabored respirations, skin warm/dry/pink. Vital Signs: 15:20 Resp 20; Temp 97.7(A); Pulse Ox 100% on R/A; Weight 65.77 kg; Height 5 ft. 8 in. ; Pain tm6 10/10; 15:20 BP 141 / 97; Pulse 106; Pulse Ox 100% on R/A; MAP 107 mmHg; tm6 18:48 BP 141 / 91; Pulse 102; Resp 18; Pulse Ox 100% on R/A; mb9 19:35 BP 133 / 85; Pulse 97; Resp 17; Temp 98.1(O); Pulse Ox 99% ; Pain 5/10; rg5 20:25 BP 132 / 91; Pulse 92; Resp 17; Pain 4/10; rg5 21:00 BP 131 / 84; Pulse 91; Resp 17; Pulse Ox 99% on R/A; rg5 22:18 BP 132 / 81; Pulse 89; Resp 17; Temp 98.4(O); Pulse Ox 99% on R/A; Pain 2/10; rg5 23:49 BP 131 / 83; Pulse 88; Resp 17; Temp 98.2(O); Pulse Ox 99% ; Pain 3/10; rg5 15:20 Body Mass Index 22.05 (65.77 kg, 172.72 cm) tm6 15:20 Pain Scale: Adult tm6 19:35 Pain Scale: Adult rg5 20:25 Pain Scale: Adult rg5 22:18 Pain Scale: Adult rg5 23:49 Pain Scale: Adult rg5 [place] Coma Score: 22:18 Eye Response: spontaneous(4). Motor Response: obeys commands(6). Verbal Response: rg5 oriented(5). Total: 15. ED Course: 15:17 Patient arrived in ED. mg5 15:22 Triage completed. tm6 15:24 Arm band placed on right wrist. tm6 15:26 Derrek Salmeron MD is Attending Physician. kerri 15:55 US Abdomen Limited In Process Unspecified. EDMS 17:12 CBC with Diff Sent. tm6 17:12 CMP Sent. tm6 17:12 Lipase Sent. tm6 17:12 Inserted saline lock: 20 gauge in right forearm, using aseptic technique. Blood tm6 collected. Flushed with 10 mL NS. 18:08 Derrek Caldwell PA is PHCP. cp 18:10 Galen Lopez MD is Referral Physician. kerri 18:21 Abdomen In Process Unspecified. EDMS 18:46 Lactate w/ 2H reflex if indic. Sent. mb9 18:46 Urinalysis w/ reflexes Sent. mb9 18:49 Placed in gown. Bed in low position. Call light in reach. Side rails up X 1. Provided mb9 Education on: press call light if needing anything. Client placed on continuous cardiac and pulse oximetry monitoring. NIBP monitoring applied. 19:04 Report given to ROSA MARIA Pearson. mb9 19:09 Michel Downing, ROSA MARIA is Primary Nurse. rg5 19:10 Door closed. Noise minimized. Warm blanket given. rg5 19:10 No provider procedures requiring assistance completed. rg5 19:56 initiated transfer with Emmie Thomason\\ [facility]. petty 22:18 transfer transportation to receiving facility. rg5 23:50 Patient transferred, IV remains in place. bleeding controlled, No redness/swelling at 5 site. 06/24 00:[address] [facility] room 506. AOC given by Emmie Wagner \\T\\2010. Altagracia Macdonald accepted \\T\\2056. Number for nurse to nurse report [phone] - [facility] to transfer pt. [facility] busy. Administered Medications: 06/23 17:16 Drug: NS 0.9% IV 1000 ml IV at 1 bolus Per protocol; 1000 mL bolus Route: IV; Rate: 1 tm6 bolus; Site: right forearm; 19:54 Follow up: IV Status: Completed infusion; IV Intake: 1000ml rg5 18:41 Drug: Ondansetron IVP 4 mg IVP once; over 2 minutes Route: IVP; Site: right forearm; mb9 19:05 Follow up: Response: No adverse reaction rg5 18:45 Drug: NS 0.9% IV 1000 ml IV at 1 bolus Per protocol; 1000 mL bolus Route: IV; Rate: 1 mb9 bolus; Site: right forearm; 18:45 Not Given (Patient Refused): [id number] mg IVP once; dilute with 10 mL 0.9% NaCl; mb9 give over 2 minutes 18:46 Drug: morphine IVP or IV 4 mg IVP once over 4 mins Route: IVP; Infused Over: 4 mins; mb9 Site: right forearm; 19:05 Follow up: Response: No adverse reaction; Pain is decreased rg5 19:23 Not Given (Patient Refused): [id number] mg 200 ml IVPB once over 60 mins rg5 19:24 Not Given (Patient Refused): [id number] mg 100 ml IVPB at 200 ml/hr once over 30 rg5 mins 19:54 Drug: MethylPrednisoLONE IVP 125 mg IVP once Route: IVP; Site: right forearm; rg5 21:14 Follow up: Response: No adverse reaction rg5 21:15 Drug: NS 0.9% IV 1000 ml IV at 125 ml/hr continuous Route: IV; Rate: 125 ml/hr; Site: rg5 right antecubital; 23:55 Follow up: IV Status: Infusion continued upon transfer; IV Intake: 500ml rg5 Medication: 18:49 VIS not applicable for this client. mb9 Intake: 19:54 IV: 1000ml; Total: 1000ml. rg5 23:55 IV: 500ml; Total: 1500ml. rg5 Outcome: 18:10 Discharge ordered by MD. manning 19:50 ER care complete, transfer ordered by MD. cp 23:54 Transferred by ground EMS [place] [facility] [facility] [place] 23:54 Condition: stable 23:54 Discharge instructions given to EMS, 23:56 Patient left the ED. rg5 Signatures: Dispatcher [employer] EDDerrek Mcclendon MD MD cha Page, Corey, PA PA cp Susan, Crystal Dorman, RN RN mb9 Naty Jaimes 5 Maria Dolores Najera [facility] Jennifer Duron RN RN 6 Michel Downing RN RN rg5 Corrections: (The following items were deleted from the chart) 15:24 15:20 Chief complaint: Patient states: last night started to have nausea and vomiting, tm6 cramps in stomach, sweating and shaking. Feels bloated and like I'm going to pass out tm6 23:50 23:50 GI: rg5 rg5
--- NOTE | 2024-06-23 19:52 | EDPHYS ---
Physician Documentation [facility] Name: Garry Franz Age: 28 yrs Sex: Male : 1995 Arrival Date: 06/23/2024 Time: 15:13 Bed 19 Private MD: CHANTELLE Physician Derrek Salmeron HPI: 06/23 17:31 This 28 yrs old Male presents to ER via Ambulatory with complaints of kerri Abdominal Pain. 17:31 The patient presents with abdominal pain in the upper abdomen, in the lower abdomen. kerri Onset: The symptoms/episode began/occurred 2 day(s) ago. The patient presents to the emergency department with nausea, vomiting, abdominal pain, of the right lower quadrant and left lower quadrant. Onset: The symptoms/episode began/occurred 2 day(s) ago. Possible causes: unknown, flare up of bowel problem, Crohn's disease. The symptoms are aggravated by nothing. The symptoms are alleviated by nothing. The symptoms do not radiate. Associated signs and symptoms: Pertinent positives: nausea, vomiting. Associated signs and symptoms: none. The symptoms are described as crampy. Modifying factors: The symptoms are alleviated by nothing, the symptoms are aggravated by food, vomiting. Severity of pain: At its worst the pain was moderate in the emergency department the pain is unchanged. Severity of symptoms: At their worst the symptoms were moderate in the emergency department the symptoms are unchanged. The patient has not experienced similar symptoms in the past. Historical: - Allergies: 15:22 No Known Allergies; tm6 - PMHx: 15:22 chron's; tm6 - PSHx: 15:22 None; tm6 - Immunization history:: Client reports having NOT received the Covid vaccine. - Infectious Disease History:: Denies. - Social history:: Smoking status: Patient denies any tobacco usage or history of. Patient/guardian denies using alcohol. ROS: 17:35 Constitutional: Negative for fever, chills, and weight loss, Eyes: Negative for injury, kerri pain, redness, and discharge, ENT: Negative for injury, pain, and discharge, Neck: Negative for injury, pain, and swelling, Cardiovascular: Negative for chest pain, palpitations, and edema, Respiratory: Negative for shortness of breath, cough, wheezing, and pleuritic chest pain, Back: Negative for injury and pain, : Negative for injury, bleeding, discharge, and swelling, MS/Extremity: Negative for injury and deformity, Skin: Negative for injury, rash, and discoloration, Neuro: Negative for headache, weakness, numbness, tingling, and seizure, 17:35 Abdomen/GI: Positive for abdominal pain, nausea and vomiting, abdominal cramps, of the right lower quadrant and left lower quadrant, Exam: 17:35 Constitutional: This is a well developed, well nourished patient who is awake, alert, kerri and in no acute distress. Head/Face: Normocephalic, atraumatic. Eyes: Pupils equal round and reactive to light, extra-ocular motions intact. Lids and lashes normal. Conjunctiva and sclera are non-icteric and not injected. Cornea within normal limits. Periorbital areas with no swelling, redness, or edema. ENT: Nares patent. No nasal discharge, no septal abnormalities noted. Tympanic membranes are normal and external auditory canals are clear. Oropharynx with no redness, swelling, or masses, exudates, or evidence of obstruction, uvula midline. Mucous membranes moist. Neck: Trachea midline, no thyromegaly or masses palpated, and no cervical lymphadenopathy. Supple, full range of motion without nuchal rigidity, or vertebral point tenderness. No Meningismus. Chest/axilla: Normal chest wall appearance and motion. Nontender with no deformity. No lesions are appreciated. Cardiovascular: Regular rate and rhythm with a normal S1 and S2. No gallops, murmurs, or rubs. Normal PMI, no JVD. No pulse deficits. Respiratory: Lungs have equal breath sounds bilaterally, clear to auscultation and percussion. No rales, rhonchi or wheezes noted. No increased work of breathing, no retractions or nasal flaring. Back: No spinal tenderness. No costovertebral tenderness. Full range of motion. Male : Normal genitalia with no discharge or lesions. Skin: Warm, dry with normal turgor. Normal color with no rashes, no lesions, and no evidence of cellulitis. MS/ Extremity: Pulses equal, no cyanosis. Neurovascular intact. Full, normal range of motion. Neuro: Awake and alert, GCS 15, oriented to person, place, time, and situation. Cranial nerves II-XII grossly intact. Motor strength 5/5 in all extremities. Sensory grossly intact. Cerebellar exam normal. Normal gait. Psych: Awake, alert, with orientation to person, place and time. Behavior, mood, and affect are within normal limits. 17:35 Abdomen/GI: Inspection: distension, that is mild, Bowel sounds: active, all quadrants, Palpation: mild abdominal tenderness, in the right lower quadrant and left lower quadrant, Liver: no appreciated palpable abnormalities, Hernia: not appreciated, 17:35 : CVA tenderness, is absent, Male external genitalia: normal, no abrasion, no discharge, no erythema, no injury, no swelling, no tenderness, no evidence of ulceration, Bladder: is normal, Sexual behavior: the patient is sexually active, and reports a single partner, Vital Signs: 15:20 Resp 20; Temp 97.7(A); Pulse Ox 100% on R/A; Weight 65.77 kg; Height 5 ft. 8 in. ; Pain tm6 10/10; 15:20 BP 141 / 97; Pulse 106; Pulse Ox 100% on R/A; MAP 107 mmHg; tm6 18:48 BP 141 / 91; Pulse 102; Resp 18; Pulse Ox 100% on R/A; mb9 19:35 BP 133 / 85; Pulse 97; Resp 17; Temp 98.1(O); Pulse Ox 99% ; Pain 5/10; rg5 20:25 BP 132 / 91; Pulse 92; Resp 17; Pain 4/10; rg5 21:00 BP 131 / 84; Pulse 91; Resp 17; Pulse Ox 99% on R/A; rg5 22:18 BP 132 / 81; Pulse 89; Resp 17; Temp 98.4(O); Pulse Ox 99% on R/A; Pain 2/10; rg5 23:49 BP 131 / 83; Pulse 88; Resp 17; Temp 98.2(O); Pulse Ox 99% ; Pain 3/10; rg5 15:20 Body Mass Index 22.05 (65.77 kg, 172.72 cm) tm6 15:20 Pain Scale: Adult tm6 19:35 Pain Scale: Adult rg5 20:25 Pain Scale: Adult rg5 22:18 Pain Scale: Adult rg5 23:49 Pain Scale: Adult rg5 [place] Score: 22:18 Eye Response: spontaneous(4). Motor Response: obeys commands(6). Verbal Response: rg5 oriented(5). Total: 15. MDM: 15:26 Patient medically screened. [facility] 17:37 Differential diagnosis: Nonspecific abd pain, gastritis, diverticulitis, viral kerri gastroenteritis, gastroenteritis, bowel obstruction, cholecystitis, Cholelithiasis, diverticulitis, gastritis, GI Bleed, Mesenteric ischemia or infarction, non-specific abd pain, pancreatitis, Peptic Ulcer Disease, Peritonitis, Pyelonephritis, Ureterolithiasis, urinary tract infection. Test considered but Not performed: Ultrasound NO ABD USG. Historians other than the Patient: PT WELL INFORMED. 21:00 I considered the following discharge prescriptions or medication management in the emergency department Medications were administered in the Emergency Department. See MAR. 21:00 Data reviewed: vital signs, nurses notes, lab test result(s), radiologic studies, CT cp scan. Management of patient was discussed with the following: Hospitalist: DR Moffett, [facility] hospitalist, will accept patient as transfer. Care significantly affected by the following chronic conditions: Crohns Disease. Counseling: I had a detailed discussion with the patient and/or guardian regarding the historical points, exam findings, and any diagnostic results supporting the discharge/admit diagnosis, lab results, radiology results, the need to transfer to another facility, requested by administration due to no beds available. 21:51 ED course: patient unable to tolerated NG tube and now refusing reattempt. 06/23 15:28 Order name: CBC with Diff; Complete Time: 19:07 [facility] 06/23 15:28 Order name: CMP; Complete Time: 18:15 [facility] 06/23 15:28 Order name: Lipase; Complete Time: 18:15 [facility] 06/23 15:28 Order name: Urinalysis w/ reflexes; Complete Time: 19:20 [facility] 06/23 18:11 Order name: Lactate w/ 2H reflex if indic.; Complete Time: 20:55 [facility] 06/23 18:51 Order name: CBC Smear Scan; Complete Time: 19:07 EDMD 06/23 19:08 Order name: Blood Culture Adult (2) 06/23 15:28 Order name: US Abdomen Limited; Complete Time: 17:23 [facility] 06/23 18:21 Order name: Abdomen ; Complete Time: 19:07 [facility] 06/23 15:28 Order name: IV Saline Lock; Complete Time: 17:12 [facility] 06/23 15:28 Order name: Labs collected and sent; Complete Time: 17:12 [facility] 06/23 19:26 Order name: NPO; Complete Time: 19:35 cp Administered Medications: 17:16 Drug: NS 0.9% IV 1000 ml IV at 1 bolus Per protocol; 1000 mL bolus Route: IV; Rate: 1 tm6 bolus; Site: right forearm; 19:54 Follow up: IV Status: Completed infusion; IV Intake: 1000ml rg5 18:41 Drug: Ondansetron IVP 4 mg IVP once; over 2 minutes Route: IVP; Site: right forearm; mb9 19:05 Follow up: Response: No adverse reaction rg5 18:45 Drug: NS 0.9% IV 1000 ml IV at 1 bolus Per protocol; 1000 mL bolus Route: IV; Rate: 1 mb9 bolus; Site: right forearm; 18:45 Not Given (Patient Refused): [id number] mg IVP once; dilute with 10 mL 0.9% NaCl; mb9 give over 2 minutes 18:46 Drug: morphine IVP or IV 4 mg IVP once over 4 mins Route: IVP; Infused Over: 4 mins; mb9 Site: right forearm; 19:05 Follow up: Response: No adverse reaction; Pain is decreased rg5 19:23 Not Given (Patient Refused): mg 200 ml IVPB once over 60 mins rg5 19:24 Not Given (Patient Refused): [id number] mg 100 ml IVPB at 200 ml/hr once over 30 rg5 mins 19:54 Drug: MethylPrednisoLONE IVP 125 mg IVP once Route: IVP; Site: right forearm; rg5 21:14 Follow up: Response: No adverse reaction rg5 21:15 Drug: NS 0.9% IV 1000 ml IV at 125 ml/hr continuous Route: IV; Rate: 125 ml/hr; Site: rg5 right antecubital; 23:55 Follow up: IV Status: Infusion continued upon transfer; IV Intake: 500ml rg5 Disposition Summary: 06/23/24 19:50 Transfer Ordered Notes: Reason: Higher level of care cp Condition: Stable(06/23/24 19:50) cp Problem: new(06/23/24 19:50) cp Symptoms: have improved(06/23/24 19:50) cp Transfer Location: [facility](06/23/24 19:54) cp Accepting Physician: DR Moffett(06/23/24 23:56) rg5 Diagnosis - Other intestinal obstruction cp - Intra-abdominal and pelvic swelling, mass and lump, unspecified site cp Forms: - Medication Reconciliation Form cp - SBAR form cp Signatures: Dispatcher [employer] EDMS Derrek Salmeron MD MD cha Page, Corey, JUNE PA Crystal Batista RN RN mb9 Jennifer Duron RN RN tm6 Michel Downing RN RN rg5 Corrections: (The following items were deleted from the chart) 15:28 15:28 CBC+H.LAB.BRZ ordered. EDMS EDMS 15:28 15:28 COMPREHENSIVE METABOLIC PANEL+C.LAB.BRZ ordered. EDMS EDMS 15:28 15:28 LIPASE+C.LAB.BRZ ordered. EDMS EDMS 15:28 15:28 Urinalysis+U.LAB.BRZ ordered. EDMS EDMS 15:28 15:28 Abdomen Pelvis W Con+CT.RAD.BRZ ordered. EDMS EDMS 15:28 15:28 Abdomen Limited+US.RAD.BRZ ordered. EDMD EDMS 18:10 18:10 Home kerri kerri 18:10 18:10 new kerri kerri 18:10 18:10 have improved kerri kerri 18:10 18:10 Stable kerri kerri 18:10 18:10 Abdominal tenderness kerri kerri 18:10 18:10 Vomiting kerri kerri 18:10 18:10 Crohn's disease, unspecified, without complications kerri kerri 19:54 19:50 Doctor cp cp 19:54 19:50 [facility] cp cp 20:58 19:54 Doctor cp cp 21:57 19:13 NG Tube ordered. cp rg5 23:56 20:58 DR Moffett cp rg5 06/24 00:50 06/23 17:37 Data reviewed: vital signs, nurses notes, lab test result(s), radiologic cp studies, CT scan, ultrasound, kerri 06/24 00:50 06/23 17:37 Consideration of Admission/Observation Escalation of care including cp admission/observation considered. [facility] 06/24 00:50 06/23 17:37 I considered the following discharge prescriptions or medication management cp in the emergency department Medications were administered in the Emergency Department. See GORDO manning 06/24 00:50 06/23 17:37 Care significantly affected by the following chronic conditions: CROHNS. hernán 06/24 00:50 06/23 17:37 Counseling: I had a detailed discussion with the patient and/or guardian cp regarding the historical points, exam findings, and any diagnostic results supporting the discharge/admit diagnosis, lab results, radiology results, the need for outpatient follow up, for definitive care, a family practitioner, a county assessor, kerri
[2024-06-24 08:56] VITALS: TEMP 98.1; O2SAT 99
[2024-06-24 09:02] VITALS: BP 131/84
== END 2024-06-23 23:56 | disposition short-term general hospital (02) ==
LOC: ER 15:13
DX: K56.699 Other intestinal obstruction unspecified as to partial versus complete obstruction (principal); R19.00 Intra-abdominal and pelvic swelling, mass and lump, unspecified site
CPT/HCPCS: 36415; 74176; 76705; 80053; 81001; 83605; 83690; 85025; 87040; 96361; 96374; 96375; 99285; J2405; J2919; J7030